=== PATIENT | male | born 1990 | race American Indian/Alaskan Native ===

== ENCOUNTER 2017-07-09 13:32 | Emergency (ER) | payer SELFPAY ==
[2017-07-09 13:39] VITALS: BP 150/65
--- NOTE | 2017-07-09 14:31 | Emergency Department Report ---
Minor Respiratory - HPI Chief Complaint: Upper Respiratory Infection Stated Complaint: FLU LIKE SX Time Seen by Provider: 07/09/17 14:25 Duration: 1 Day Pain Location: Other (cough only) Severity: mild Minor Respiratory: Yes Able to Tolerate Fluids, Yes Cough, No Rhinorrhea, No Sore Throat, No Ear Pain, No Sick Contacts, No Hemoptysis, No Chest Pain, No Shortness of Breath, No Fever ED Review of Systems ROS: Stated complaint: FLU LIKE SX Other details as noted in HPI Constitutional: denies: fever, malaise, weakness Eyes: denies: eye pain ENT: denies: ear pain Respiratory: cough Cardiovascular: denies: chest pain ED Past Medical Hx - Past Medical History Previous Medical History?: No - Surgical History Past Surgical History?: No - Social History Smoking Status: Never Smoker Substance Use Type: None - Medications Home Medications: Home Medications Medication Instructions Recorded Confirmed Last Taken Type Ibuprofen [Motrin] 600 mg PO Q6H PRN #20 tablet 08/26/13 Unknown Rx Methocarbamol [Robaxin] 750 mg PO BID PRN #14 tab 08/26/13 Unknown Rx traMADol [Ultram] 50 mg PO Q6HR PRN #20 tablet 08/26/13 Unknown Rx Minor Respiratory Exam - Exam General: Vital signs noted. No distress. Alert and acting appropriately. HEENT: Yes Moist Mucous Membranes, No Pharyngeal Erythema, No Pharyngeal Exudates, No Rhinorrhea, No Conjuctival Injection, No Frontal Tenderness, No Maxillary Tenderness Neck: Yes Supple Lungs: Yes Good Air Exchange, No Wheezes, No Ronchi, No Stridor, No Cough, No Labored Respirations, No Retractions, No Use of Accessory Muscles, No Other Abnormal Lung Sounds Heart: Yes Regular, No Murmur Abdomen: No Tenderness, No Peritoneal Signs Neurologic: Alert and oriented, no deficits. Musculoskeletal: Unremarkable. ED Course Vital Signs 07/09/17 13:36 Temperature 98.7 F Pulse Rate 95 H Respiratory 18 Rate Blood Pressure 150/65 O2 Sat by Pulse 100 Oximetry ED Medical Decision Making - Radiology Data Mr. Field is a healthy, well appearing 26 yo male who presents with non productive cough. dx: URI recommended supportive care Critical care attestation.: If time is entered above; I have spent that time in minutes in the direct care of this critically ill patient, excluding procedure time. ED Disposition Clinical Impression: Upper respiratory infection Disposition: DC-01 TO HOME OR SELFCARE Is pt being admited?: No Does the pt Need Aspirin: No Condition: Good Instructions: Upper Respiratory Infection (ED) Forms: Work/School Release Form(ED) Time of Disposition: 14:31
== END 2017-07-09 14:51 | disposition home or self-care (01) ==
LOC: ED 13:32
DX: J06.9 Acute upper respiratory infection, unspecified (principal)
CPT/HCPCS: 99282